=== PATIENT | male | born 1975 | race Caucasian/White ===

== ENCOUNTER 2016-08-20 17:09 | Emergency (ER) | payer OTHER ==
[2016-08-20 17:23] VITALS: BP 136/78; TEMP 97.4; O2SAT 98
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
[2016-08-20] MEDS: KETOROLAC TROMETHAMINE INJ 60 MG/2 ML VIAL IM ONE (18:10)
== END 2016-08-20 18:25 | disposition home or self-care (01) ==
LOC: ER 17:09
DX: S16.1XXA Strain of muscle, fascia and tendon at neck level, initial encounter (principal); Z88.0 Allergy status to penicillin; V49.50XA Passenger injured in collision with unspecified motor vehicles in traffic accident, initial encounter; Y92.410 Unspecified street and highway as the place of occurrence of the external cause
CPT/HCPCS: 72040; 72070; J1885

== ENCOUNTER 2017-04-03 01:54 | Emergency (ER) | payer OTHER ==
--- NOTE | 2017-04-03 02:14 | ED.PDOC ---
History of Present Illness - General Chief Complaint: Abdominal Pain Stated Complaint: stomach pain, nausea, diarrhea Time Seen by Provider: 04/03/17 02:07 Information Source: patient Exam Limitations: no limitations - History of Present Illness Abdominal Pain Onset Location: epigastric Pain Radiation: no radiation Quality: sharpness Timing/Duration: 4-6 hours Improving Factors: nothing Worsening Factors: nothing Review of Systems - Review of Systems Constitutional: Denies: chills, fever EENTM: States: no symptoms reported Respiratory: Denies: cough, short of breath Cardiology: Denies: chest pain, palpitations Gastrointestinal/Abdominal: States: abdominal pain, diarrhea - 1 LOOSE STOOL. Denies: nausea, vomiting Genitourinary: States: no symptoms reported Musculoskeletal: States: no symptoms reported Skin: States: no symptoms reported Neurological: States: no symptoms reported Endocrine: States: no symptoms reported Hematologic/Lymphatic: States: no symptoms reported Past Medical History (General) - Patient Medical History Hx Seizures: No Hx Stroke: No Hx Dementia: No Hx Asthma: No Hx of COPD: No Hx Cardiac Disorders: No Hx Congestive Heart Failure: No Hx Pacemaker: No Hx Hypertension: No Hx Thyroid Disease: No Hx Diabetes: No Hx Gastroesophageal Reflux: No Hx Renal Disease: No Hx Cancer: No Hx of HIV: No Hx Hepatitis C: No Hx MRSA: No Surgical History: other - ORTHOPEDIC SURGERY ONLY - Vaccination History Hx Tetanus, Diphtheria Vaccination: No Hx Influenza Vaccination: No Hx Pneumococcal Vaccination: No - Social History Hx Tobacco Use: No Hx Alcohol Use: No Hx Substance Use: No Hx Substance Use Treatment: No Hx Depression: No Family Medical History - Family History Mother Family History: Unknown Father Family History: Unknown Living Status: Unknown Physical Exam - Physical Exam General Appearance: Alert, No apparent distress, Well Developed, Well Nourished Eyes, Ears, Nose, Throat Exam: PERRL/EOMI, normal ENT inspection Neck: non-tender, full range of motion, supple Respiratory: lungs clear, normal breath sounds Cardiovascular/Chest: regular rate, rhythm, no murmur Gastrointestinal/Abdominal: normal bowel sounds, soft, no organomegaly, other - MODERATELY TENDER EPIGASTRIC Back Exam: normal inspection, no CVA tenderness Extremity: normal range of motion, normal inspection Neurologic: alert, normal mood/affect Skin Exam: normal color, warm/dry Lymphatic: no adenopathy Progress - Progress Progress: 04/03/17 03:18 PAIN RESOLVED AFTER SLIDER - EKG/XRAY/CT EKG: Sinus - RATE 63, NL AXIS, NL INTERVALS, , no ST T wave changes - NAIP Departure - Departure Clinical Impression: Gastritis Qualifiers: Gastritis type: unspecified gastritis Chronicity: acute Gastritis bleeding: without bleeding Qualified Code(s): K29.00 - Acute gastritis without bleeding Disposition: Discharge to Home or Self Care Departure Forms: ED Discharge - Pt. Copy, Patient Portal Self Enrollment Instructions: Gastritis, DI for Abdominal Pain-Adult Referrals: Bhanu Rae MD [Primary Care Provider] - 1-2 Weeks Prescriptions: Esomeprazole Magnesium [Nexium] 40 mg PO DAILY #15 cap Home Medications: Ambulatory Orders Cyclobenzaprine HCl [Flexeril] 5 mg PO Q8HRS PRN #12 tab 08/20/16 Esomeprazole Magnesium [Nexium] 40 mg PO DAILY #15 cap 04/03/17
[2017-04-03] MEDS ORDERED: LIDOCAINE VIS-MYLANTA 30 ML UD PO ONE (02:17)
[2017-04-03 03:32] VITALS: BP 117/86; TEMP 96.3; O2SAT 95
== END 2017-04-03 03:32 | disposition home or self-care (01) ==
LOC: ER 01:54
DX: K29.00 Acute gastritis without bleeding (principal)